=== PATIENT | male | born 1950 | race Caucasian/White ===

== ENCOUNTER 2016-09-15 14:01 | Emergency (ER) | payer OTHER ==
[2016-09-15 14:46] LABS: BASOPHILS 0.2 %; BASOPHILS ABSOLUTE 0.01 10/3/uL (0.0-0.16); EOSINOPHILS 5.1 %; EOSINOPHILS ABSOLUTE 0.21 10/3/uL (0.0-0.53); HEMATOCRIT 39.8 % (40.0-51.0); HEMOGLOBIN 13.7 g/dL (13.6-17.8); IMMATURE GRANULOCYTES 0.2 %; IMMATURE GRANULOCYTES ABSOLUTE 0.01 10/3/uL (0.0-0.11); LYMPHOCYTES 42.4 %; LYMPHOCYTES ABSOLUTE 1.73 10/3/uL (0.67-4.30); MEAN CORPUS HGB CONC 34.4 g/dL (32.0-36.0); MEAN CORPUSCULAR HEMOGLOB 30.4 pg (26.0-34.0); MEAN CORPUSCULAR VOLUME 88.4 fL (80-100); MEAN PLATELET VOLUME 9.4 fL (9.2-13.0); MONOCYTES 6.6 %; MONOCYTES ABSOLUTE 0.27 10/3/uL (0.21-1.20); NEUTROPHILS 45.5 %; NEUTROPHILS ABSOLUTE 1.85 10/3/uL (2.02-8.40); PLATELET COUNT 173 10/3/uL (150-400); RBC DISTRIBUTION WIDTH 13.2 % (12.0-16.0); WHITE BLOOD CELLS 4.1 10/3/uL (4.5-10.5)
[2016-09-15 14:47] LABS: MANUAL DIFF NO %
[2016-09-15 15:01] LABS: A/G RATIO 1.1 (0.7-1.9); ALBUMIN 3.8 G/DL (3.5-5.0); ALKALINE PHOSPHATASE 60 U/L (45-117); AMPHETAMINES (NOT ORD) NEG (NEG); BENZODIAZEPINES (NOT ORD) NEG (NEG); CALCIUM, SERUM 8.8 MG/DL (8.5-10.4); CANNABINOIDS (THC) NEG (NEG); CHLORIDE, SERUM 109 MMOL/L (96-112); CO2 (CARBON DIOXIDE) 30 MMOL/L (24-34); COCAINE (NOT ORDERED) NEG (NEG); CREATININE 0.86 MG/DL (0.70-1.30); GFR AFRICAN AMERICAN 107 ML/MIN (>=60); GFR NON AFRICAN AMERICAN 92 ML/MIN (>=60); GLOBULIN 3.5 G/DL (2.5-4.1); GLUCOSE, SERUM 87 MG/DL (60-99); PHENCYCLIDINE(PCP) NEG (NEG); POTASSIUM, SERUM 3.7 MMOL/L (3.5-5.3); SGOT(AST) 18 U/L (5-40); SGPT(ALT) 26 U/L (5-65); SODIUM, SERUM 144 MMOL/L (135-148); TOTAL BILIRUBIN 0.4 MG/DL (0-1.2); TOTAL PROTEIN 7.3 G/DL (6.0-8.5)
[2016-09-15 15:02] LABS: BARBITURATES (NOT ORDERED NEG (NEG); OPIATES NEG (NEG); TRICYCLICS NEG (NEG)
[2016-09-15 15:06] LABS: ACETAMINOPHEN LEVEL (TYLENOL) < 2.0 MCG/ML (10.0-20.0); ALCOHOL < 10 MG/DL (0); BUN (BLOOD UREA NITROGEN) 19 MG/DL (6-23); SALICYLATE < 1.7 MG/DL (-)
[2016-09-15] MEDS ORDERED: ZYRTEC ALLGY10 MG PO (16:36)
[2016-09-15] MEDS ORDERED: ZOCOR20 PO (16:39)
[2016-09-15] MEDS ORDERED: [UNRECOGNIZED DRUG - OTHER] PO (16:39)
[2016-09-15] MEDS ORDERED: PRIN20 PO (16:40)
== END 2016-09-15 23:51 | disposition home or self-care (01) ==
LOC: ER 14:01
PROVIDERS: Nurse Practitioner Family
DX: T48.1X2A Poisoning by skeletal muscle relaxants [neuromuscular blocking agents], intentional self-harm, initial encounter (principal); F63.81 Intermittent explosive disorder; F23 Brief psychotic disorder; F32.9 Major depressive disorder, single episode, unspecified; I10 Essential (primary) hypertension; E78.5 Hyperlipidemia, unspecified; Z79.899 Other long term (current) drug therapy
CPT/HCPCS: 80053; 80305; 80307; 85025; 93005; 99291; A9270-GY